=== PATIENT | male | born 2000 | race Two or more races ===

== ENCOUNTER 2020-06-20 09:34 | Emergency (ER) | payer OTHER, MEDICAID, SELFPAY ==
[2020-06-20 09:41] VITALS: BP 135/81; PULSE 75; RESP 18; TEMP 37.1; O2SAT 100; BMI 22.0
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
[2020-06-20] MEDS: Acetaminophen 325 MG TABLET 650 MG PO (09:58)
--- NOTE | 2020-06-20 11:06 | PC.NURSE ---
COLLAR REMOVED BY PROVIDER. GOOD ROM NECK.
== END 2020-06-20 11:31 | disposition home or self-care (01) ==
PROVIDERS: Emergency Provider Emergency Medicine Emergency Medical Services; PCP Pediatrics
DX: S13.4XXA Sprain of ligaments of cervical spine, initial encounter (principal); V43.52XA Car driver injured in collision with other type car in traffic accident, initial encounter; Y93.89 Activity, other specified; Y92.414 Local residential or business street as the place of occurrence of the external cause; Y99.9 Unspecified external cause status
CPT/HCPCS: 70450; 72125; 99283; 99284

== ENCOUNTER 2021-10-20 17:47 | Emergency (ER) | payer OTHER, MEDICAID, SELFPAY ==
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
[2021-10-20 17:55] VITALS: BP 122/67; BP 128/80; PULSE 60; PULSE 61; RESP 16; TEMP 37.2; O2SAT 99; BMI 21.1
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
[2021-10-20 20:23] VITALS: BP 115/61; PULSE 61; RESP 20; TEMP 36.9; O2SAT 97
== END 2021-10-20 22:04 | disposition home or self-care (01) ==
PROVIDERS: Emergency Provider Emergency Medicine; PCP Pediatrics
DX: S13.4XXA Sprain of ligaments of cervical spine, initial encounter (principal); G44.309 Post-traumatic headache, unspecified, not intractable; V43.52XA Car driver injured in collision with other type car in traffic accident, initial encounter; Y93.9 Activity, unspecified; Y92.410 Unspecified street and highway as the place of occurrence of the external cause; Y99.9 Unspecified external cause status; Z79.899 Other long term (current) drug therapy
CPT/HCPCS: 70450; 72125; 99284